=== PATIENT | female | born 1955 | race Two or more races ===

== ENCOUNTER → 2017-04-18 | Outpatient (CLI) | payer OTHER ==
[2017-04-18 08:37] LABS: ALANINE AMINOTRANSFERASE 35 U/L (9-52); ALBUMIN 4.5 g/dL (3.5-5.0); ALKALINE PHOSPHATASE 64 U/L (38-126); ANION GAP 15 (5-19); ASPARTATE AMINO TRANSFERASE 21 U/L (14-36); BILIRUBIN,DIRECT 0.3 mg/dL (0.0-0.4); BILIRUBIN,TOTAL 0.5 mg/dL (0.2-1.3); BLOOD UREA NITROGEN 15 mg/dL (7-20); CALCIUM 9.9 mg/dL (8.4-10.2); CARBON DIOXIDE 28 mmol/L (22-30); CHLORIDE 99 mmol/L (98-107); CREATININE RESULT 0.77 mg/dL (0.52-1.25); GLUCOSE 137 mg/dL (75-110); MAGNESIUM 1.5 mg/dL (1.6-2.3); POTASSIUM 4.4 mmol/L (3.6-5.0); SODIUM 141.7 mmol/L (137-145); TOTAL PROTEIN 6.8 g/dL (6.3-8.2); TRIGLYCERIDES 151 mg/dL (<150)
[2017-04-18 08:38] LABS: CHOLESTEROL 135.64 mg/dL (0-200); Direct HDL 45 mg/dL (>40)
[2017-04-18 08:48] LABS: DIRECT LDL 71 mg/dL (<100)
[2017-04-18 08:51] LABS: VLDL CHOLESTEROL 30.2 mg/dL (10-31)
== END ==
LOC: OD 07:24
PROVIDERS: ATTEND Internal Medicine Cardiovascular Disease
DX: E83.42 Hypomagnesemia (principal); E78.2 Mixed hyperlipidemia; R00.2 Palpitations; Z79.899 Other long term (current) drug therapy
CPT/HCPCS: 36415; 80048; 80061; 80076; 83735

== ENCOUNTER → 2017-07-06 | Outpatient (CLI) | payer BC, OTHER ==
[2017-07-06 08:15] LABS: HEMATOCRIT 45.1 % (36.0-47.0); HEMOGLOBIN 15.5 g/dL (12.0-15.5); HGB HCT DIFFERENCE 1.4; MEAN CORPUSCULAR HEMOGLOBIN 29.9 pg (27.0-33.4); MEAN CORPUSCULAR HGB CONC 34.5 g/dL (32.0-36.0); MEAN CORPUSCULAR VOLUME 87 fl (80-97); RED CELL DISTRIBUTION WIDTH 13.2 % (11.5-14.0); WHITE BLOOD COUNT 7.7 10^3/uL (4.0-10.5)
[2017-07-06 08:42] LABS: ALANINE AMINOTRANSFERASE 41 U/L (9-52); ALBUMIN 5.1 g/dL (3.5-5.0); ALKALINE PHOSPHATASE 60 U/L (38-126); ANION GAP 18 (5-19); ASPARTATE AMINO TRANSFERASE 27 U/L (14-36); BILIRUBIN,DIRECT 0.3 mg/dL (0.0-0.4); BILIRUBIN,TOTAL 0.5 mg/dL (0.2-1.3); BLOOD UREA NITROGEN 22 mg/dL (7-20); CALCIUM 10.1 mg/dL (8.4-10.2); CARBON DIOXIDE 29 mmol/L (22-30); CHLORIDE 95 mmol/L (98-107); CHOLESTEROL 159.36 mg/dL (0-200); CREATININE RESULT 0.78 mg/dL (0.52-1.25); Direct HDL 44 mg/dL (>40); GLUCOSE 145 mg/dL (75-110); POTASSIUM 4.2 mmol/L (3.6-5.0); SODIUM 142.1 mmol/L (137-145); TOTAL PROTEIN 7.6 g/dL (6.3-8.2); TRIGLYCERIDES 240 mg/dL (<150)
[2017-07-06 08:53] LABS: DIRECT LDL 84 mg/dL (<100)
== END ==
LOC: OD 07:17
PROVIDERS: ATTEND Family Medicine
DX: I10 Essential (primary) hypertension (principal); E11.9 Type 2 diabetes mellitus without complications; E78.2 Mixed hyperlipidemia
CPT/HCPCS: 36415; 80053; 80061; 82043; 85027

== ENCOUNTER → 2017-11-30 | Outpatient (CLI) | payer BC, OTHER ==
--- NOTE | 2017-11-30 22:25 | RADIOLOGY REPORT (SQ) ---
EXAM DESCRIPTION: MRI LUMBAR SPINE WITHOUT COMPLETED DATE/TIME: 11/30/2017 7:52 pm REASON FOR STUDY: OTHER INTERVERTEBRAL DISC DEGENERATION, LUMBAR REGION M51.36 OTHER INTERVERTEBRAL DISC DEGENERATION, LUMBAR REGION COMPARISON: None. TECHNIQUE: Sagittal and Axial imaging includes T1, T2, STIR and gradient echo sequences. Coronal T2/ HASTE imaging. LIMITATIONS: None. FINDINGS: VISUALIZED UPPER ABDOMEN: Limited evaluation. No acute or suspicious findings suggested. SEGMENTATION: No transitional anatomy. The lowest well-developed disc space is labeled L5-S1. ALIGNMENT: Anatomic. VERTEBRAE: Intact. BONE MARROW: Normal. No marrow replacement or reactive changes. DISC SIGNAL: Decreased height and signal particularly at L3-L4 and L4-L5. POSTERIOR ELEMENTS: Generally intact. No pars defect evident. HARDWARE: None in the spine. CORD AND CONUS: Normal in size and signal intensity. Conus at the mid L1 level. There is a fatty les ion in the filum terminale. At the level of L2 this measures 4 to 5 mm transverse and 17 mm in lengt h. Continued thin fatty signal inferiorly to the upper sacrum. SOFT TISSUES: No aortic aneurysm seen. No bulky retroperitoneal adenopathy or mass. No paraspinal mas s or fluid. L1-L2: No significant spinal stenosis or exit foraminal stenosis. L2-L3: No significant spinal stenosis or exit foraminal stenosis. L3-L4: Mild diffuse posterior annular disc bulge. Mild to moderate facet arthropathy. No significan t spinal stenosis. Mild exit foraminal stenosis. L4-L5: Central disc bulge. Moderate facet arthropathy. Moderate spinal stenosis and right exit fora adrien stenosis. L5-S1: No significant spinal stenosis or exit foraminal stenosis. LOWER THORACIC: Incompletely imaged. No stenosis seen. SACRUM: Visualized upper sacrum intact. OTHER: No other significant findings. IMPRESSION: 1. LIPOMA OF THE FILUM TERMINALE DESCRIBED. THE DISTAL END OF THE CONUS IS AT THE MID L1 LEVEL. 2. DEGENERATIVE DISC DISEASE AT L3-L4 AND L4-L5 DESCRIBED ABOVE. TECHNICAL DOCUMENTATION: JOB ID: [id number]- All Rights Reserved Reading location - IP/workstation name: [email or web address]
== END ==
LOC: RAD 18:58
PROVIDERS: ATTEND Orthopaedic Surgery
DX: M51.36 Other intervertebral disc degeneration, lumbar region (principal)
CPT/HCPCS: 72148

== ENCOUNTER → 2017-12-08 | Outpatient (CLI) | payer BC, OTHER ==
[2017-12-08 08:32] LABS: ABSOLUTE EOSINOPHILS # (AUTO) 0.3 10^3/uL (0.0-0.6); ABSOLUTE MONOCYTES (AUTO) 0.7 10^3/uL (0.1-1.4); ABSOLUTE NEUT (AUTO) 6.8 10^3/uL (1.7-8.2); BASOPHILS % (AUTO) 0.4 % (0-2); EOSINOPHILS % (AUTO) 2.7 % (0-6); HEMATOCRIT 44.9 % (36.0-47.0); HEMOGLOBIN 14.7 g/dL (12.0-15.5); LYMPHOCYTES % (AUTO) 20.6 % (13-45); MEAN CORPUSCULAR HEMOGLOBIN 29.2 pg (27.0-33.4); MEAN CORPUSCULAR HGB CONC 32.8 g/dL (32.0-36.0); MEAN CORPUSCULAR VOLUME 89 fl (80-97); MONOCYTES % (AUTO) 7.5 % (3-13); PLATELET COUNT 354 10^3/uL (150-450); RED BLOOD COUNT 5.06 10^6/uL (3.72-5.28); RED CELL DISTRIBUTION WIDTH 13.8 % (11.5-14.0); SEGMENTED NEUTROPHILS % (AUTO) 68.8 % (42-78); TOTAL CELLS COUNTED % (AUTO) 100 %; WHITE BLOOD COUNT 9.9 10^3/uL (4.0-10.5)
[2017-12-08 08:58] LABS: ALANINE AMINOTRANSFERASE 37 U/L (9-52); ALBUMIN 4.6 g/dL (3.5-5.0); ALKALINE PHOSPHATASE 73 U/L (38-126); ANION GAP 15 (5-19); ASPARTATE AMINO TRANSFERASE 23 U/L (14-36); BILIRUBIN,DIRECT 0.2 mg/dL (0.0-0.4); BILIRUBIN,TOTAL 0.4 mg/dL (0.2-1.3); BLOOD UREA NITROGEN 25 mg/dL (7-20); CALCIUM 10.2 mg/dL (8.4-10.2); CARBON DIOXIDE 28 mmol/L (22-30); CHLORIDE 97 mmol/L (98-107); GLUCOSE 117 mg/dL (75-110); POTASSIUM 4.3 mmol/L (3.6-5.0); SODIUM 139.7 mmol/L (137-145); TOTAL PROTEIN 6.8 g/dL (6.3-8.2)
== END ==
LOC: OD 07:38
PROVIDERS: ATTEND Internal Medicine Medical Oncology
DX: N60.99 Unspecified benign mammary dysplasia of unspecified breast (principal)
CPT/HCPCS: 36415; 80053; 82378; 85025; 86300

== ENCOUNTER → 2018-03-13 | Outpatient (CLI) | payer BC, OTHER ==
[2018-03-13 08:53] LABS: ANION GAP 14 (5-19); BLOOD UREA NITROGEN 19 mg/dL (7-20); CALCIUM 9.8 mg/dL (8.4-10.2); CARBON DIOXIDE 28 mmol/L (22-30); CHLORIDE 103 mmol/L (98-107); CHOLESTEROL 119.39 mg/dL (0-200); GLUCOSE 131 mg/dL (75-110); POTASSIUM 4.2 mmol/L (3.6-5.0); SODIUM 145.2 mmol/L (137-145); TRIGLYCERIDES 181 mg/dL (<150)
[2018-03-13 09:04] LABS: DIRECT LDL 63 mg/dL (<100); VLDL CHOLESTEROL 36.2 mg/dL (10-31)
== END ==
LOC: OD 07:32
PROVIDERS: ATTEND Internal Medicine Cardiovascular Disease
DX: E83.42 Hypomagnesemia (principal); E78.2 Mixed hyperlipidemia; I10 Essential (primary) hypertension; Z79.899 Other long term (current) drug therapy
CPT/HCPCS: 36415; 80048; 80061; 83735

== ENCOUNTER → 2018-07-29 | Outpatient (CLI) | payer OTHER ==
[2018-07-29 11:09] LABS: ALANINE AMINOTRANSFERASE 30 U/L (9-52); ALBUMIN 4.4 g/dL (3.5-5.0); ALKALINE PHOSPHATASE 66 U/L (38-126); ANION GAP 17 (5-19); ASPARTATE AMINO TRANSFERASE 22 U/L (14-36); BILIRUBIN,DIRECT 0.3 mg/dL (0.0-0.4); BILIRUBIN,TOTAL 0.3 mg/dL (0.2-1.3); BLOOD UREA NITROGEN 18 mg/dL (7-20); CALCIUM 10.6 mg/dL (8.4-10.2); CARBON DIOXIDE 32 mmol/L (22-30); CHLORIDE 96 mmol/L (98-107); CHOLESTEROL 117.95 mg/dL (0-200); GLUCOSE 103 mg/dL (75-110); POTASSIUM 3.6 mmol/L (3.6-5.0); SODIUM 144.9 mmol/L (137-145); TOTAL PROTEIN 6.8 g/dL (6.3-8.2); TRIGLYCERIDES 163 mg/dL (<150)
[2018-07-29 11:20] LABS: DIRECT LDL 74 mg/dL (<100)
[2018-07-29 11:23] LABS: VLDL CHOLESTEROL 32.6 mg/dL (10-31)
== END ==
LOC: OD 09:11
PROVIDERS: ATTEND Internal Medicine Cardiovascular Disease
DX: E78.2 Mixed hyperlipidemia (principal); I10 Essential (primary) hypertension; E83.42 Hypomagnesemia; Z79.899 Other long term (current) drug therapy
CPT/HCPCS: 36415; 80048; 80061; 80076; 83735

== ENCOUNTER → 2018-09-07 | Outpatient (CLI) | payer OTHER ==
[2018-09-07 08:46] LABS: ALANINE AMINOTRANSFERASE 26 U/L (9-52); ALBUMIN 4.4 g/dL (3.5-5.0); ALKALINE PHOSPHATASE 71 U/L (38-126); ANION GAP 14 (5-19); ASPARTATE AMINO TRANSFERASE 24 U/L (14-36); BILIRUBIN,DIRECT 0.2 mg/dL (0.0-0.4); BILIRUBIN,TOTAL 0.4 mg/dL (0.2-1.3); BLOOD UREA NITROGEN 17 mg/dL (7-20); CALCIUM 10.4 mg/dL (8.4-10.2); CARBON DIOXIDE 29 mmol/L (22-30); CHLORIDE 97 mmol/L (98-107); GLUCOSE 131 mg/dL (75-110); POTASSIUM 3.7 mmol/L (3.6-5.0); SODIUM 139.9 mmol/L (137-145); TOTAL PROTEIN 6.9 g/dL (6.3-8.2)
== END ==
LOC: OD 07:23
PROVIDERS: ATTEND Internal Medicine Cardiovascular Disease
DX: I10 Essential (primary) hypertension (principal); Z79.899 Other long term (current) drug therapy; E56.9 Vitamin deficiency, unspecified; E78.2 Mixed hyperlipidemia
CPT/HCPCS: 36415; 80048; 80076; 82306

== ENCOUNTER → 2018-12-30 | Outpatient (CLI) | payer OTHER ==
[2018-12-30 10:12] LABS: ALANINE AMINOTRANSFERASE 46 U/L (9-52); ALBUMIN 4.3 g/dL (3.5-5.0); ALKALINE PHOSPHATASE 95 U/L (38-126); ANION GAP 11 (5-19); ASPARTATE AMINO TRANSFERASE 27 U/L (14-36); BILIRUBIN,DIRECT 0.2 mg/dL (0.0-0.4); BILIRUBIN,TOTAL 0.2 mg/dL (0.2-1.3); BLOOD UREA NITROGEN 21 mg/dL (7-20); CALCIUM 9.8 mg/dL (8.4-10.2); CARBON DIOXIDE 26 mmol/L (22-30); CHLORIDE 101 mmol/L (98-107); CHOLESTEROL 166.55 mg/dL (0-200); GLUCOSE 127 mg/dL (75-110); POTASSIUM 3.9 mmol/L (3.6-5.0); SODIUM 138.1 mmol/L (137-145); TOTAL PROTEIN 6.7 g/dL (6.3-8.2); TRIGLYCERIDES 401 mg/dL (<150)
[2018-12-30 10:23] LABS: DIRECT LDL 87 mg/dL (<100)
== END ==
LOC: OD 09:35
PROVIDERS: ATTEND Physician Assistant
DX: E83.42 Hypomagnesemia (principal); I10 Essential (primary) hypertension; Z79.899 Other long term (current) drug therapy
CPT/HCPCS: 36415; 80048; 80061; 80076; 83735

== ENCOUNTER → 2019-06-09 | Outpatient (CLI) | payer OTHER ==
[2019-06-09 08:07] LABS: ANION GAP 11 (5-19); BLOOD UREA NITROGEN 18 mg/dL (7-20); CALCIUM 9.3 mg/dL (8.4-10.2); CARBON DIOXIDE 29 mmol/L (22-30); CHLORIDE 100 mmol/L (98-107); GLUCOSE 115 mg/dL (75-110)
== END ==
LOC: LAB 07:35
PROVIDERS: ATTEND Physician Assistant
DX: R00.2 Palpitations (principal); I10 Essential (primary) hypertension; Z79.899 Other long term (current) drug therapy
CPT/HCPCS: 36415; 80048; 84443

== ENCOUNTER → 2019-09-26 | Outpatient (CLI) | payer OTHER ==
[2019-09-26 07:50] LABS: ALBUMIN 4.5 g/dL (3.5-5.0); ALKALINE PHOSPHATASE 52 U/L (38-126); ANION GAP 6 (5-19); ASPARTATE AMINO TRANSFERASE 21 U/L (14-36); BILIRUBIN,DIRECT 0.1 mg/dL (0.0-0.4); BILIRUBIN,TOTAL 0.7 mg/dL (0.2-1.3); BLOOD UREA NITROGEN 24 mg/dL (7-20); CARBON DIOXIDE 32 mmol/L (22-30); CHLORIDE 105 mmol/L (98-107); CHOLESTEROL 99.27 mg/dL (0-200); GLUCOSE 106 mg/dL (75-110); POTASSIUM 4.2 mmol/L (3.6-5.0); TRIGLYCERIDES 132 mg/dL (<150)
[2019-09-26 08:01] LABS: DIRECT LDL 41 mg/dL (<100)
== END ==
LOC: LAB 07:07
PROVIDERS: ATTEND Internal Medicine Cardiovascular Disease
DX: E78.2 Mixed hyperlipidemia (principal); I10 Essential (primary) hypertension; Z79.899 Other long term (current) drug therapy
CPT/HCPCS: 36415; 80048; 80061; 80076

== ENCOUNTER → 2020-02-26 | Outpatient (CLI) | payer OTHER | LOC: OD 07:09 | PROVIDERS: ATTEND Physician Assistant | DX: R00.2 Palpitations (principal) | CPT/HCPCS: 36415; 84443 ==

== ENCOUNTER → 2020-04-12 | Outpatient (CLI) | payer OTHER ==
[2020-04-12 09:54] LABS: ALBUMIN 4.4 g/dL (3.5-5.0); ALKALINE PHOSPHATASE 65 U/L (38-126); ANION GAP 6 (5-19); ASPARTATE AMINO TRANSFERASE 26 U/L (14-36); BILIRUBIN,TOTAL 0.4 mg/dL (0.2-1.3); BLOOD UREA NITROGEN 21 mg/dL (7-20); CALCIUM 9.4 mg/dL (8.4-10.2); CARBON DIOXIDE 30 mmol/L (22-30); CHLORIDE 103 mmol/L (98-107); CHOLESTEROL 108.41 mg/dL (0-200); GLUCOSE 94 mg/dL (75-110); POTASSIUM 3.9 mmol/L (3.6-5.0); TOTAL PROTEIN 6.6 g/dL (6.3-8.2); TRIGLYCERIDES 93 mg/dL (<150)
[2020-04-12 10:05] LABS: DIRECT LDL 47 mg/dL (<100)
== END ==
LOC: OD 08:42
PROVIDERS: ATTEND Physician Assistant
DX: E83.42 Hypomagnesemia (principal); I10 Essential (primary) hypertension; Z79.899 Other long term (current) drug therapy
CPT/HCPCS: 36415; 80048; 80061; 80076; 83735

== ENCOUNTER → 2020-04-29 | Outpatient (CLI) | payer OTHER ==
[2020-04-29 08:30] LABS: HEMATOCRIT 46.5 % (36.0-47.0); HEMOGLOBIN 15.6 g/dL (12.0-15.5); MEAN CORPUSCULAR HEMOGLOBIN 31.2 pg (27.0-33.4); MEAN CORPUSCULAR HGB CONC 33.5 g/dL (32.0-36.0); MEAN CORPUSCULAR VOLUME 93 fl (80-97); PLATELET COUNT 269 10^3/uL (150-450); RED BLOOD COUNT 4.99 10^6/uL (3.72-5.28); RED CELL DISTRIBUTION WIDTH 14.6 % (11.5-14.0)
[2020-04-29 08:38] LABS: ALBUMIN 4.9 g/dL (3.5-5.0); ALKALINE PHOSPHATASE 79 U/L (38-126); ANION GAP 7 (5-19); ASPARTATE AMINO TRANSFERASE 31 U/L (14-36); BILIRUBIN,TOTAL 0.4 mg/dL (0.2-1.3); BLOOD UREA NITROGEN 25 mg/dL (7-20); CALCIUM 9.7 mg/dL (8.4-10.2); CARBON DIOXIDE 31 mmol/L (22-30); CHLORIDE 101 mmol/L (98-107); CHOLESTEROL 117.04 mg/dL (0-200); GLUCOSE 114 mg/dL (75-110); TOTAL PROTEIN 7.4 g/dL (6.3-8.2); TRIGLYCERIDES 110 mg/dL (<150)
[2020-04-29 08:49] LABS: DIRECT LDL 47 mg/dL (<100)
== END ==
LOC: OD 07:05
PROVIDERS: ATTEND Physician Assistant
DX: E83.42 Hypomagnesemia (principal); I10 Essential (primary) hypertension; D51.9 Vitamin B12 deficiency anemia, unspecified; Z79.899 Other long term (current) drug therapy
CPT/HCPCS: 36415; 80048; 80061; 80076; 82607; 83735; 85027

== ENCOUNTER → 2020-07-31 | Outpatient (CLI) | payer OTHER ==
[2020-07-31 08:40] LABS: ALBUMIN 4.5 g/dL (3.5-5.0); ALKALINE PHOSPHATASE 103 U/L (38-126); ANION GAP 11 (5-19); ASPARTATE AMINO TRANSFERASE 30 U/L (14-36); BILIRUBIN,DIRECT 0.2 mg/dL (0.0-0.4); BILIRUBIN,TOTAL 0.4 mg/dL (0.2-1.3); BLOOD UREA NITROGEN 20 mg/dL (7-20); CALCIUM 9.7 mg/dL (8.4-10.2); CARBON DIOXIDE 28 mmol/L (22-30); CHLORIDE 100 mmol/L (98-107); CHOLESTEROL 128.32 mg/dL (0-200); GLUCOSE 105 mg/dL (75-110); POTASSIUM 3.9 mmol/L (3.6-5.0); TOTAL PROTEIN 6.8 g/dL (6.3-8.2); TRIGLYCERIDES 71 mg/dL (<150)
[2020-07-31 08:51] LABS: DIRECT LDL 53 mg/dL (<100)
--- OUTSIDE RECORDS SUMMARY | 2020-08-01 14:55 | XMS REPORT ---
:1955 Author Organization [facility] Address [facility] [address] [place] [address] Care Team Providers Name Role Phone Monahan Primary Care Physician Unavailable Hioe Attending Clinician Unavailable Allergies, Adverse Reactions, Alerts This patient has no known allergies or adverse reactions. Medications Ordered Filled Start Stop Current Ordering Indication Dosage Frequency Signature Comments Components Medication Medication Date Date Medication? Clinician (SIG) Name Name Doxepin HCl 2019-0 Yes Richy Doxepin - 5 % 9-08 Eid HCl - 5 % External 12:13: D.O. External Cream 36 Cream APPLY 1/2 GRAM TO THE AFFECTED AREA 3-4 TIMES PER DAY. Quantity: 45 Refills: 0 Stanton D.Richy Castro Start : 27-May-2020 Active Lidocaine-P 2020-0 Yes Richy Lidocaine- rilocaine 9-08 Eid Prilocaine 2.5-2.5 % 12:13: D.O. 2.5-2.5 % External 31 External Cream Cream APPLY 1-2 GRAMS TO THE AFFECTED AREA 3-4 TIMES A DAY DIRECTED. Quantity: 240 Refills: 2 Stanton D.Jane.Richy Start : 27-May-2020 Active Colchicine 2020-0 Yes Richy Colchicine 0.6 MG Oral 9-04 Eid 0.6 MG Tablet 00:00: D.O. Oral 00 Tablet TAKE 1 TABLET po q day and during gout attacks ronnie one po bid - must get kidney labs 2 weeks after start. Quantity: 30 Refills: 0 Eid D.Jane.Richy Start : 23-May-2020 Active Lidocaine-P 2020-0 No Richy Lidocaine- rilocaine 7-17 Eid Prilocaine 2.5-2.5 % 11:26: D.O. 2.5-2.5 % External 14 External Cream Cream APPLY 1-2 GRAMS TO THE AFFECTED AREA 3-4 TIMES A DAY DIRECTED. Quantity: 240 Refills: 2 Richy Eid D.O. Start : 0Active Doxepin HCl 0 No Richy Doxepin - 5 % 7-17 Eid HCl - 5 % External 11:26: D.O. External Cream 12 Cream APPLY 1/2 GRAM TO THE AFFECTED AREA 3-4 TIMES PER DAY. Quantity: 45 Refills: 0 Richy Eid D.O. Start : 0Active Doxepin HCl 0 No Richy Doxepin - 5 % 7-17 Eid HCl - 5 % External 00:00: D.O. External Cream 00 Cream APPLY 1/2 GRAM TO THE AFFECTED AREA 3-4 TIMES PER DAY. Quantity: 45 Refills: 0 Richy Eid D.O. Start : 0Active Lidocaine-P 2019-0 No Richy Lidocaine- rilocaine - Stanton Prilocaine 2.5-2.5 % 00:00: D.O. 2.5-2.5 % External 00 External Cream Cream APPLY 1-2 GRAMS TO THE AFFECTED AREA 3-4 TIMES A DAY DIRECTED. Quantity: 240 Refills: 2 Richy Eid D.O. Start : 0Active Rinvoq 15 2019-0 Yes Richy Rinvoq 15 MG Oral 5-15 Eid MG Oral Tablet 00:00: D.O. Tablet Extended 00 Extended Release 24 Release 24 Hour Hour TAKE ONE TABLET BY MOUTH ONCE A DAY Quantity: 90 Refills: 3 Richy Eid D.O. Start : 0Active Rinvoq 15 2019-0 No Richy Rinvoq 15 MG Oral 5-15 Eid MG Oral Tablet 00:00: D.O. Tablet Extended 00 Extended Release 24 Release 24 Hour Hour take one tab po q day Quantity: 30 Refills: 6 Richy Eid D.O. Start : 0Active Hydroxychlo 2019-0 Yes Richy 1 Q0.5D Hydroxychl roquine 5-29 Eid oroquine Sulfate 200 00:00: D.O. Sulfate MG Oral 00 200 MG Tablet Oral Tablet TAKE 1 TABLET TWICE DAILY WITH FOOD. Quantity: 180 Refills: 0 Richy Eid D.O. Start : 9Active Omeprazole 0 No Richy QD Omeprazole 20 MG Oral 5-29 Eid 20 MG Oral Capsule 00:00: D.O. Capsule Delayed 00 Delayed Release Release TAKE 1 CAPSULE DAILY EVERY MORNING BEFORE BREAKFAST. Quantity: 90 Refills: 3 Richy Eid D.O. Start : 9Active Hydroxychlo 2018-0 No Richy 1 Q0.5D Hydroxychl roquine 5-29 Eid oroquine Sulfate 200 00:00: D.O. Sulfate MG Oral 00 200 MG Tablet Oral Tablet TAKE 1 TABLET TWICE DAILY WITH FOOD. Quantity: 180 Refills: 0 Richy Eid D.O. Start : 9Active Omeprazole Yes Richy QD Omeprazole 20 MG Oral 5-29 Eid 20 MG Oral Capsule 00:00: D.O. Capsule Delayed 00 Delayed Release Release TAKE 1 CAPSULE DAILY EVERY MORNING BEFORE BREAKFAST. Quantity: 90 Refills: 3 Richy Eid D.O. Start : Hydroxychlo No Richy 1 Q0.5D Hydroxychl roquine 5-29 Eid oroquine Sulfate 200 00:00: D.O. Sulfate MG Oral 00 200 MG Tablet Oral Tablet TAKE 1 TABLET TWICE DAILY WITH FOOD. Quantity: 180 Refills: 0 Richy Eid D.O. Start : 9A Janumet 2017-09 Yes Q0.5D Janumet 50-1000 MG 1-05 50-1000 MG Oral Tablet 00:00: Oral 00 Tablet TAKE 1 TABLET TWICE DAILY WITH MEALS. Quantity: 60 Refills: 0 Start : 24-Jul-2018 Active Lipitor 10 2017-09 Yes 1 QD Lipitor 10 MG Oral 1-05 MG Oral Tablet 00:00: Tablet 00 TAKE 1 TABLET DAILY. Refills: 0 Start : 24-Jul-2018 Active Amitriptyli 2017-09 Yes 1 Amitriptyl ne HCl - 10 1-05 ine HCl - MG Oral 00:00: 10 MG Oral Tablet 00 Tablet TAKE 1 TABLET AT BEDTIME. Refills: 0 Start : 24-Jul-2018 Active Cyclobenzap 2017- Yes Cyclobenza rine HCl - 1-05 reji HCl 10 MG Oral 00:00: - 10 MG Tablet 00 Oral Tablet Take 1 tablet by mouth once a day Refills: 0 Start : 24-Jul-2018 Active HYDROcodone 2017-09 Yes HYDROcodon -Acetaminop 1-05 e-Acetamin hen 5-325 00:00: ophen MG Oral 00 5-325 MG Tablet Oral Tablet TAKE 1 TABLET EVERY 4 TO 6 HOURS NEEDED FOR PAIN. Refills: 0 Start : 24-Jul-2018 Active Meloxicam 2017-09 Yes Meloxicam 7.5 MG Oral 1-05 7.5 MG Tablet 00:00: Oral 00 Tablet TAKE 1 TABLET DAILY NEEDED. Refills: 0 Start : 24-Jul-2018 Active Vitamin B12 2017-09 Yes Vitamin 1000 MCG 1-05 B12 1000 Oral Tablet 00:00: MCG Oral Extended 00 Tablet Release Extended Release Refills: 0 Start : 24-Jul-2018 Active Biotin 10 2017-09 Yes Biotin 10 MG Oral 1-05 MG Oral Capsule 00:00: Capsule 00 Refills: 0 Start : 24-Jul-2018 Active Vitamin D-3 2017-09 Yes Vitamin 25 MCG 1-05 D-3 25 MCG (1000 UT) 00:00: (1000 UT) Oral 00 Oral Capsule Capsule Refills: 0 Start : 24-Jul-2018 Active Magnesium 2017-09 Yes Magnesium 400 MG Oral 1-05 400 MG Tablet 00:00: Oral 00 Tablet Refills: 0 Start : 24-Jul-2018 Active Calcium 250 2017-09 Yes Calcium MG Oral 1-05 250 MG Capsule 00:00: Oral 00 Capsule Refills: 0 Start : 24-Jul-2018 Active Glucosamine 2017-09 Yes Glucosamin 750 MG Oral 1-05 e 750 MG Tablet 00:00: Oral 00 Tablet Refills: 0 Start : 24-Jul-2018 Active Methotrexat 2017-09 No Richy Methotrexa e 2.5 MG 1-05 Eid te 2.5 MG Oral Tablet 00:00: D.O. Oral 00 Tablet Take 6 tablets once weekly Quantity: 48 Refills: 3 Richy Eid D.O. Start : 24-Jul-2018 Active Folic Acid 2017-09 Shelly Lockhart QD Folic Acid 1 MG Oral 1-05 Eid 1 MG Oral Tablet 00:00: D.O. Tablet 00 TAKE 1 TABLET DAILY DIRECTED. Quantity: 90 Refills: 3 Richy Eid D.O. Start : 24-Jul-2018 Active Methotrexat 2017-09 Shelly Lockhart Methotrexa e 2.5 MG 1-05 Eid te 2.5 MG Oral Tablet 00:00: D.O. Oral 00 Tablet Take 6 tablets once weekly Quantity: 72 Refills: 1 Richy Eid D.O. Start : 24-Jul-2018 Active Methotrexat 2017- Yes Richy Methotrexa e 2.5 MG 1-05 Stanton te 2.5 MG Oral Tablet 00:00: D.O. Oral 00 Tablet Take 6 tablets once weekly Quantity: 72 Refills: 1 Richy Eid D.O. Start : 24-Jul-2018 Active Folic Acid 2017-09 Yes Richy QD Folic Acid 1 MG Oral -05 Eid 1 MG Oral Tablet 00:00: D.O. Tablet 00 TAKE 1 TABLET DAILY DIRECTED. Quantity: 90 Refills: 3 Richy Eid D.O. Start : 24-Jul-2018 Active hydroCHLORO Yes 1 QD hydroCHLOR thiazide 25 1-15 Othiazide MG Oral 00:00: 25 MG Oral Tablet 00 Tablet TAKE 1 TABLET DAILY. Refills: 0 Start : 3Active Aspirin 81 Yes 1 QD Aspirin 81 MG TABS 1-15 MG TABS 00:00: TAKE 1 00 TABLET DAILY. Refills: 0 Start : 3Active Lisinopril Yes QD Lisinopril 40 MG Oral 1-15 40 MG Oral Tablet 00:00: Tablet 00 TAKE 1 TABLET DAILY DIRECTED. Refills: 0 Start : 3Active Flonase 50 Yes QD Flonase 50 MCG/ACT 1-15 MCG/ACT SUSP 00:00: SUSP USE 1 00 SPRAY IN EACH NOSTRIL ONCE DAILY. Refills: 0 Start : 3Active aspirin 81 No 1 Q1D aspirin 81 mg mg tablet,rocío tablet,del yed release ayed Take 1 release tablet Take 1 every day tablet by oral every day route. by oral route. atorvastati No 1 Q1D atorvastat n 40 mg in 40 mg tablet Take tablet 1 tablet Take 1 every day tablet by oral every day route in by oral the evening route in for 90 the days. evening for 90 days. cetirizine No cetirizine 10 mg 10 mg tablet Take tablet 1 tablet Take 1 every day tablet by oral every day route for 5 by oral days. route for 5 days. colchicine No colchicine 0.6 mg 0.6 mg tablet tablet cyclobenzap No cyclobenza rine 10 mg reji 10 tablet mg tablet doxepin 5 % No doxepin 5 topical % topical cream APPLY cream 1/2 GRAM TO APPLY 1/2 THE GRAM TO AFFECTED THE AREA 3-4 AFFECTED TIMES PER AREA 3-4 DAY. TIMES PER DAY. Easy Touch No Easy Touch Alcohol Alcohol Prep Pads Prep Pads USE DAILY USE DAILY NEEDED NEEDED TO TEST TO TEST BLOOD SUGAR BLOOD SUGAR EpiPen No EpiPen 2-Gurpreet 0.3 2-Gurpreet 0.3 mg/0.3 mL mg/0.3 mL injection, injection, auto-inject auto-injec or USE tor USE DIRECTED DIRECTED INTRAMUSCUL INTRAMUSCU JUAN M LARLY NEEDED NEEDED fluticasone No fluticason propionate e 50 propionate mcg/actuati 50 on nasal mcg/actuat spray,suspe ion nasal nsion Douglas spray,susp 2 sprays ension every day Douglas 2 by sprays intranasal every day route. by intranasal route. folic acid No folic acid 1 mg tablet 1 mg tablet hydrochloro No hydrochlor thiazide othiazide 12.5 mg 12.5 mg capsule capsule TAKE 1 TAKE 1 CAPSULE CAPSULE DAILY DAILY hydroxychlo No hydroxychl roquine 200 oroquine mg tablet 200 mg tablet Janumet XR No Janumet XR 50 mg-1,000 50 mg mg-1,000 tablet,exte mg nded tablet,ext release ended TAKE 1 release TABLET TAKE 1 TWICE DAILY TABLET FOR TWICE DIABETES DAILY FOR DIABETES lisinopril No 1 Q1D lisinopril 2.5 mg 2.5 mg tablet Take tablet 1 tablet Take 1 every day tablet by oral every day route for by oral 90 days. route for 90 days. loratadine No loratadine 10 mg 10 mg tablet TAKE tablet 1 TABLET TAKE 1 DAILY TABLET NEEDED FOR DAILY ALLERGIES NEEDED FOR ALLERGIES naproxen No 1 BID naproxen 250 mg 250 mg tablet Take tablet 1 tablet Take 1 twice a day tablet by oral twice a route as day by needed for oral route 30 days. as needed for 30 days. omeprazole No omeprazole 20 mg 20 mg capsule,del capsule,de ayed layed release release sumatriptan No sumatripta 50 mg n 50 mg tablet tablet NEURO NEURO lidocaine-p No lidocaine- rilocaine prilocaine 2.5 %-2.5 % 2.5 %-2.5 topical % topical cream cream Problems Condition Condition Condition Status Onset Resolution Last Treatin g Comments Name Details Category Date Date Treatment Clinician Date Migraine Migraine Problem Active 2019-09 0 00:00: 00 Mixed Mixed Problem Active hyperlipide Hyperlipide 8-08 alam alma 00:00: 00 Abnormal Abnormal Problem Active finding on finding on urinalysis urinalysis Alopecia Alopecia Problem Active GERD GERD Problem Active without without esophagitis esophagitis Pyuria Pyuria Problem Active Urinary Urinary Problem Active calculus calculus Rheumatoid Rheumatoid Problem Active arthritis arthritis involving involving both hands both hands with with positive positive rheumatoid rheumatoid factor factor Asymptomati Asymptomati Problem Active c c hyperuricem hyperuricem ia ia Hematuria Hematuria Problem Active DM2 DM2 Problem Active (diabetes (diabetes mellitus, mellitus, type 2) type 2) Chronic Chronic Problem Active gout gout Essential Essential Problem Active hypertensio Hypertensio n n Allergic Allergic Problem Active rhinitis Rhinitis Gastroesoph Gastroesoph Problem Active ageal ageal reflux Reflux disease Disease Rheumatoid Rheumatoid Problem Active arthritis 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 kidney Kidney Uterine Uterine Problem Active leiomyoma Leiomyoma Type 2 Type 2 Problem Active diabetes Diabetes mellitus Mellitus without without complicatio Complicatio n n Insomnia Insomnia Problem Active Obstructive Obstructive Problem Active sleep apnea Sleep Apnea syndrome Syndrome Procedures Procedure Date / Time Performed Performing Clinician Devic e pulse oximetry (PROC) 2020-07-24 00:00:00 Uric Acid 2020-05-23 00:00:00 OFFICE/OUTPATIENT VISIT [facility] 2018-03-21 15:00:00 Breast Biopsy 2007-09-19 00:00:00 ANESTH BLADDER SURGERY 2004-09-19 00:00:00 TREAT HAND BONE LESION 2002-09-19 00:00:00 History of Neuroplasty Decompression Median Nerve At Carpal Tunnel History of Bladder Surgery History of Biopsy Breast Open Results Test Description Test Time Test Comments Text Results Atomic Results Result Comments Ova and parasites identified in Stool by Concentration 2020-06-20 7 00:00:00 Test Item Value Reference Range Comments Ova and parasites identified in Stool by Trichrome stain (test c ode = see note 11012-7) Ova and parasites identified in Stool by Concentration (test cod e = see note 09659-2) Bacteria identified in Stool by [id number] 00:00:00 Test Item Value Reference Range Comments Escherichia coli shiga-like toxin [Presence] in see note Stool by Immunoassay (test code = 83273-2) Campylobacter sp identified in Stool by Organism see note specific culture (test code = 6331-3) Salmonella and Shigella sp identified in Stool by see note Organism specific culture (test code = 35649-2) Lipid 1995 panel - Serum or [id number] 00:00:00 Test Item Value Reference Range Comments Cholesterol [Mass/volume] in Serum or Plasma (test tnp code = 2093-3) Cholesterol in HDL [Mass/volume] in Serum or Plasma tnp (test code = 2085-9) Triglyceride [Mass/volume] in Serum or Plasma (test tnp code = 2571-8) Cholesterol in LDL [Mass/volume] in Serum or Plasma by tnp calculation (test code = 51300-1) Cholesterol.total/Cholesterol.in HDL [Mass ratio] in tnp Serum or Plasma (test code = 9830-1) Cholesterol non HDL [Mass/volume] in Serum or Plasma tnp (test code = 05147-3) test in question - no test for [id number] 00:00:00 Test Item Value Reference Range Comments question/problem: (test code no test(s) are indicated on the = question/problem:) requisition for the following specimen(s). specimen(s) received: (test specimen rs unneeded code = specimen(s) received:) comment (test code = comment) Clostridioides difficile toxin A+B [Presence] in [id number] 00:00:00 Test Item Value Reference Range Comments Clostridioides difficile glutamate dehydrogenase see note [Presence] in Stool (test code = 38813-4) CBC W Auto Differential panel - [id number] 00:00:00 Test Item Value Reference Range Comments Leukocytes [#/volume] in Blood by Automated count tnp (test code = 6690-2) Lipid 1995 panel - Serum or [id number] 00:00:00 Test Item Value Reference Range Comments Cholesterol [Mass/volume] in Serum or 205 mg/dL <200 Plasma (test code = 2093-3) Cholesterol in HDL [Mass/volume] in Serum 43 mg/dL > or = 50 or Plasma (test code = 2085-9) Triglyceride [Mass/volume] in Serum or 209 mg/dL <150 Plasma (test code = 2571-8) Cholesterol in LDL [Mass/volume] in Serum 127 mg/dL (calc) or Plasma by calculation (test code = 26610-0) Cholesterol.total/Cholesterol.in HDL [Mass 4.8 (calc) <5.0 ratio] in Serum or Plasma (test code = 9830-1) Cholesterol non HDL [Mass/volume] in Serum 162 mg/dL (calc) <130 or Plasma (test code = 38711-3) Tissue transglutaminase IgA + Gliadin peptides IgA and IgG panel - Serum 2020-07-10 00:00:00 Test Item Value Reference Range Comments Laboratory comment [Text] in Report Narrative (test code = 48874-8) Tissue transglutaminase IgA Ab [Units/volume] in 1 U/mL Serum (test code = 07755-2) IgA [Mass/volume] in Serum or Plasma (test code = 629 mg/dL 70-320 2458-8) [id number] 16:07:00 Test Item Value Reference Range Comments White Blood Cell (test code = White Blood Cell) 6.2 K/uL 3.5-11.1 Red Blood Cell (test code = Red Blood Cell) 4.28 {M/uL} 3.69 -4.87 Hemoglobin (test code = Hemoglobin) 13.2 g/dL 11.4-14.4 Hematocrit (test code = Hematocrit) 39 % 33-41 Mean Corpuscular Volume (test code = Mean 92.1 fL 79.0-9 5.0 Corpuscular Volume) Mean Corpuscular Hemoglobin (test code = Mean 30.8 pg/mL 27 .0-33.0 Corpuscular Hemoglobin) Mean Corpuscular Hemoglobin Concentration (test 33.5 g/dL 33.5-35.5 code = Mean Corpuscular Hemoglobin Concentration) Red Cell Distribution Width (test code = Red 13.0 % 12. 0-15.0 Cell Distribution Width) Platelet (test code = Platelet) 308 K/uL 130-353 Mean Platelet Volume (test code = Mean Platelet 9.3 fL 7.5-10.7 Volume) Neutrophil Count, absolute (test code = 3.9 K/uL 1.9-7.2 Neutrophil Count, absolute) Neutrophil Count Percentage (test code = 62.1 % 43.0-72 .0 Neutrophil Count Percentage) Lymphocyte Count, absolute (test code = 1.5 K/uL 1.1-2.7 Lymphocyte Count, absolute) Lymphocyte Count Percentage (test code = 23.4 % 17.0-44 .0 Lymphocyte Count Percentage) Monocyte Count, absolute (test code = Monocyte 0.7 K/uL 0 .3-0.8 Count, absolute) Monocyte Count Percentage (test code = Monocyte 10.8 % 4.5-12.4 Count Percentage) Eosinophil Count, absolute (test code = 0.2 K/uL 0.0-0.5 Eosinophil Count, absolute) Eosinophil Count Percentage (test code = 2.4 % 0.7-7.8 Eosinophil Count Percentage) Basophil Count, absolute (test code = Basophil 0.1 K/uL 0 .0-0.1 Count, absolute) Basophil Count Percentage (test code = Basophil 1.1 % 0.2-1.1 Count Percentage) Nucleated Red Blood Cell, absolute (test code = 0.00 K/uL 0.00-0.00 Nucleated Red Blood Cell, absolute) Nucleated Red Blood Cell, percentage (test code 0.00 % 0.00-0.00 = Nucleated Red Blood Cell, percentage) Sed [id number] 16:07:00 Test Item Value Reference Range Comments Erythrocyte Sedimentation Rate (test code = <1 0-30 Less than linearity Erythrocyte Sedimentation Rate) [id number] 16:07:00 Test Item Value Reference Range Comments C-Reactive Protein (test code = C-Reactive Protein) <5 <10 CMP(Complete Metabolic Panel)2020-05-23 16:07:00 Test Item Value Reference Range Comments Glucose (test code = Glucose) 95 mg/dL 74-106 Sodium (test code = Sodium) 138 mmol/L 135-145 Potassium (test code = Potassium) 3.7 mmol/L 3.5-5.3 Chloride (test code = Chloride) 101 mmol/L 98-107 CO2 (test code = CO2) 26 mmol/L 22-30 Creatinine, serum (test code = Creatinine, serum) 0.70 mg/dL 0.10-1.04 Glomerular Filtration Rate (test code = >60 >60 Glomerular Filtration Rate) Glomerular Filtration Rate AA (test code = >60 >60 Glomerular Filtration Rate AA) Blood Urea Nitrogen (test code = Blood Urea 23 mg/dL 7-17 Nitrogen) Calcium (test code = Calcium) 9.7 mg/dL 8.4-10.5 Phosphorus (test code = Phosphorus) 3.4 mg/dL 2.5-4.5 Total Protein (test code = Total Protein) 6.4 g/dL 6.3-8. 2 Albumin (test code = 66663-3) 4.3 g/dL 3.5-5.0 Total Bilirubin (test code = Total Bilirubin) 0.3 mg/dL 0. 2-1.3 Bilirubin, unconj (test code = Bilirubin, unconj) 0.2 mg/dL 0.0-1.1 Bilirubin, Direct (test code = Bilirubin, Direct) 0.1 mg/dL 0.0-0.4 Alkaline Phosphatase (test code = Alkaline 59 U/L 20-15 0 Phosphatase) Alanine Transaminase (test code = Alanine 20 U/L 0-35 Transaminase) Aspartate Aminotransferase (test code = Aspartate 28 U/L 3-36 Aminotransferase) Uric [id number] 16:07:00 Test Item Value Reference Range Comments Uric Acid (test code = Uric Acid) 5.8 mg/dL 2.5-6.2 Assessments Condition Name Status Diagnosis Date Treating Clinici an Chronic diarrhea Active 2020-07-24 17:04:33 Mixed hyperlipidemia Active 2020-07-24 16:02:51 Essential hypertension Active 2020-06-23 15:52:20 Type 2 diabetes mellitus without Active 2020-06-23 15:5 2:05 complication Mixed hyperlipidemia Active 2020-06-23 15:53:29 Depression screening Active 2020-06-23 15:54:08 Rheumatoid arthritis Active 2020-07-08 16:37:54 Carpal tunnel syndrome of right wrist Active 2020-07-08 16:42:29 Diarrhea Active 2020-07-08 16:40:17 DM2 (diabetes mellitus, type 2) Active Pyuria Active Hematuria Active GERD without esophagitis Active Alopecia Active Rheumatoid arthritis involving both Active hands with positive rheumatoid factor Urinary calculus Active DM2 (diabetes mellitus, type 2) Active Hematuria Active GERD without esophagitis Active Rheumatoid arthritis involving both Active hands with positive rheumatoid factor Urinary calculus Active Hyperuricemia Active DM2 (diabetes mellitus, type 2) Active Pyuria Active Hematuria Active GERD without esophagitis Active Alopecia Active Rheumatoid arthritis involving both Active hands with positive rheumatoid factor Hyperuricemia Active DM2 (diabetes mellitus, type 2) Active Hematuria Active Rheumatoid arthritis involving both Active hands with positive rheumatoid factor Hyperuricemia Active DM2 (diabetes mellitus, type 2) Active GERD without esophagitis Active Chronic gout Active Rheumatoid arthritis involving both Active hands with positive rheumatoid factor History of scabies Active DM2 (diabetes mellitus, type 2) Active Alopecia Active Use of tamoxifen (Nolvadex) Active Stress on family due to return of Active family member from deployment History of malignant neoplasm of breast Active Rheumatoid arthritis involving both Active hands with positive rheumatoid factor Urinary calculus Active Abnormal finding on urinalysis Active Other allergic rhinitis Active Essential (primary) hypertension Active Allergic rhinitis due to pollen Active Body mass index (BMI) 23.0-23.9, adult Active Encounters Start End Encounter Admission Attending Care Care Encounter Date/Time Date/Time Type Type Clinicians Facility Department ID 2020-07-24 2020-07-24 Dalila Arteaus [facility] [id number] 00:00:00 00:00:00 Hotaling, Immediate Immediate & 105 MARINE SERVICE MANAGER: [facility], [address], [place] [address], Ph. 2020-07-08 2020-07-08 Taniya [facility] [id number] 00:00:00 00:00:00 Wolanzyk, Immediate Immediate & 020 DATA CENTER MANAGER: [facility], [address], [place] [address], Ph. 2020-05-23 2020-05-23 Appointment [facility] [id number] 15:45:00 15:45:00 ; Richy Eid D.O. 2020-01-15 2020-01-15 [id number] 14:30:00 14:30:00 ; Richy Eid D.O. 2019-11-06 2019-11-06 [facility] [id number] 08:15:00 08:15:00 ; Arcadio Charles 2019-10-16 2019-10-16 Appointment [facility] [id number] 14:45:00 14:45:00 ; Richy Eid D.O. 2019-10-05 2019-10-05 Appointment [facility] [id number] 08:35:00 08:35:00 ; CHRISTIN germain, Lab 2019-08-28 2019-08-28 Appointment [facility] [id number] 08:35:00 08:35:00 ; CHRISTIN germain, Lab 2019-08-01 2019-08-01 Appointment [facility] [id number] 08:40:00 08:40:00 ; CHRISTIN germain, Lab 2019-07-05 2019-07-05 Appointment [facility] [id number] 14:45:00 14:45:00 ; Richy Eid D.O. 2019-02-14 2019-02-14 Appointment [facility] [id number] 15:45:00 15:45:00 ; Richy Eid D.O. 2018-07-24 2018-07-24 Appointment [facility] [id number] 09:00:00 09:00:00 ; Richy Eid D.O. 2018-03-21 2018-03-21 Outpatient Dru [facility] [id number] 15:00:00 15:00:00 Children [id number] and [id number] [place] Family History Family Member Diagnosis Comments Start Date Stop Date Unspecified Family history of Has 3 children Other Mother Family history of Diabetes Mellitus Mother Family history of Heart Disease Mother Family history of Hypertension Mother Family history of Pure Hypercholesterolemia Mother Family history of Stroke Syndrome Immunizations Ordered Immunization Filled Immunization Date Status Commen ts Refusal Reason Name Name Fluarix Quadrivalent 2018-07-24 Completed 0.5 ML Intramuscular 00:00:00 Suspension Prefilled Syringe influenza, seasonal, 2017-07-21 Completed injectable 17:03:39 influenza, seasonal, 2015-06-20 Completed injectable, 14:43:23 preservative free influenza, seasonal, 2014-06-11 Completed injectable 17:57:43 influenza, seasonal, 2012-07-11 Completed injectable 00:00:00 influenza, seasonal, 2011-06-07 Completed injectable 00:00:00 Plan of Treatment Planned Activity Planned Date Details Comments Future Appointment 2020-11-05 16:00:00 Taniya Hernández, [address]; [address], [place] [address] Future Appointment 2020-10-27 08:15:00 Nurse, Mirian Cat; [address], [place] [address] Social History Smoking Status Start Date Stop Date Ex-smoker (finding) Never Smoker Vital Signs Vital Name Observation Time Observation Value Comments BP Diastolic 2020-07-24 00:00:00 68 mm[Hg] Height 2020-07-24 00:00:00 60 [in_i] BMI (Body Mass Index) 2020-07-24 00:00:00 21.9 kg/m2 BP Systolic 2020-07-24 00:00:00 103 mm[Hg] Body Weight 2020-07-24 00:00:00 112 [lb_av] BP Diastolic 2020-07-08 00:00:00 77 mm[Hg] Height 2020-07-08 00:00:00 60 [in_i] BMI (Body Mass Index) 2020-07-08 00:00:00 22.5 kg/m2 BP Systolic 2020-07-08 00:00:00 126 mm[Hg] Body Weight 2020-07-08 00:00:00 115 [lb_av] Systolic blood pressure 2020-05-23 15:34:00 120 mm[Hg] Diastolic blood pressure 2020-05-23 15:34:00 80 mm[Hg] Body height 2020-05-23 15:34:00 60 [in_us] Weight 2020-05-23 15:34:00 112.125 [lb_av] Body mass index (BMI) [Ratio] 2020-05-23 15:34:00 21.9 kg/m2 Body temperature 2020-05-23 15:34:00 98.7 [degF] Heart Rate 2020-05-23 15:34:00 94 /min Respiratory rate 2020-05-23 15:34:00 16 /min O2 SAT 2020-05-23 15:34:00 99 % Source: Hospital Discharge Instructions 1. Essential hypertension hydrochlorothiazide 12.5 mg capsule lisinopril 2.5 mg tablet 2. Type 2 diabetes mellitus without complication aspirin 81 mg tablet,delayed release Janumet XR 50 mg-1,000 mg tablet,extended release 3. Mixed hyperlipidemia atorvastatin 40 mg tablet lipidpanel, serum 4. Depression screening Patient Health Questionnaire-2 5. Rheumatoid arthritis 6. Carpal tunnel syndrome of right wrist wrist splint naproxen 250 mg tablet 7. Diarrhea H pylori Ab, serum culture, stool O&P (ova & parasites), stool clostridium difficile,culture, unspecified specimen unlisted lab - stool culture celiac disease comprehensive panel, serum CBC w/ auto diff Discussion Note After performing a Medical Screening Examination, I estimate there is LOW risk for ACUTE APPENDICITIS, BOWEL OBSTRUCTION, ACUTE CHOLECYSTITIS, PERFORATED DIVERTICULITIS, INCARCERATED HERNIA, PANCREATITIS, PELVIC INFLAMMATORY DISEASE, PERFORATED ULCER, ECTOPIC , or T[place]-OVARIAN ABSCESS, thus I consider the discharge disposition reasonable. Also, there is no evidence of peritonitis, sepsis, or toxicity. The patient and I have discussed the diagnosis and risks, and we agree with discharging home with close follow-up with the understanding that symptoms and presentations can change. We also discussed returning to the Office immediately if new or worsening symptoms occur. We have discussed the symptoms which are most concerning (e.g., bloody stool,fever, changing or worsening pain, vomiting) that necessitate immediate return. Patient educational handouts: No information available.NameDatesDetailsInstructions not documented
== END ==
LOC: OD 07:05
PROVIDERS: ATTEND Physician Assistant
DX: E78.2 Mixed hyperlipidemia (principal); I10 Essential (primary) hypertension; E83.42 Hypomagnesemia; Z79.899 Other long term (current) drug therapy
CPT/HCPCS: 36415; 80048; 80061; 80076; 83735

== ENCOUNTER → 2020-10-07 | Outpatient (CLI) | payer OTHER | LOC: OD 07:25 | PROVIDERS: ATTEND Physician Assistant | DX: E83.42 Hypomagnesemia (principal) | CPT/HCPCS: 36415; 83735 ==